=== PATIENT | female | born 1950 | race Caucasian/White ===

== ENCOUNTER 2024-05-30 12:54 | Emergency (ER) | payer OTHER ==
[2024-05-30] MEDS ORDERED: Bacitracin 1 PK ONE (14:03)
[2024-05-30] MEDS ORDERED: Acetaminophen 500 MG TAB ONE (14:03)
== END 2024-05-30 14:41 | disposition home or self-care (01) ==
LOC: MADERS 12:54
DX: S40.211A Abrasion of right shoulder, initial encounter (principal); S80.811A Abrasion, right lower leg, initial encounter; S80.812A Abrasion, left lower leg, initial encounter; E03.9 Hypothyroidism, unspecified; V89.2XXA Person injured in unspecified motor-vehicle accident, traffic, initial encounter
CPT/HCPCS: 99284